=== PATIENT | male | born 1955 | race Caucasian/White ===

== ENCOUNTER → 2017-11-06 | Outpatient (CLI) | payer OTHER ==
[~2017-11-06] MED LIST: LISINOPRIL10 MG PO; NAPROSYN500 MG PO; TRAMADOL 50 MG50 MG PO
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
== END ==
LOC: M.PC 04:36
DX: M54.5 Low back pain (principal); M79.661 Pain in right lower leg